=== PATIENT | male | born 1990 | race Caucasian/White ===

== ENCOUNTER 2017-04-22 10:49 | Emergency (ER) | payer BC ==
[2017-04-22] MEDS ORDERED: SULFAMETHOXAZOLE/TRIMETHOPRIM 1 TAB TABLET PO ONE (11:11)
[2017-04-22] MEDS ORDERED: GENTAMICIN SULFATE 3.5 APPL TUBE LEFTEYE ONE (11:15)
--- NOTE | 2017-04-22 11:18 | ERNOTE ---
ENT HPI Date of Service: 04/22/17 Presenting Symptoms: eye pain, other - facial swelling Time Seen by Provider: 04/22/17 10:59 - Immun/Allergies/Home Medications Immunizations: IMMUNIZATION HX Immunizations Up to Date Yes History of Influenza Vaccine No Hx Pneumococcal Vaccination No Allergies/Adverse Reactions: Allergies Allergy/AdvReac Type Severity Reaction Status Date / Time No Known Allergies Allergy Unverified 04/22/17 10:58 Home Medications: HOME MEDICATIONS Gentamicin Sulfate [Gentacidin 0.3% Ophth Ointment] 1 appl LEFTEYE TID #1 bottle 04/22/17 [Last Taken Unknown] Sulfamethoxazole/Trimethoprim [Bactrim Ds] 1 tab PO BID #28 tab 04/22/17 [Last Taken Unknown] - History of Present Illness Narrative: Pt. with L facial swelling started L medial eyebrow two days ago. Pt. had this happen a month ago when he had a blemish on his eye lid and it improved with keflex. Date (Duration): 04/20/17 Severity: Present: moderate ENT Location: Present: eye (L), facial Prearrival Treatment: Absent: over the counter meds, prescription meds, flushing eys Modifying Factors - Improves: Reports: antibiotics - keflex improved previously Modifying Factors - Worsens: Reports: nothing Associated Symptoms - ENT: Reports: denies symptoms Prior Treament: Reports: similar symptoms before Review of Systems - Review of Systems Constitutional: Present: no symptoms reported. Absent: recent illness, fever, chills, weakness, fatigue, malaise EYE: Present: eye pain, other - eye lid swelling. Absent: eye discharge, blurred vision, double vision, vision changes, tearing ENT: Present: no symptoms reported Respiratory: Present: no symptoms reported. Absent: shortness of breath, cough , wheezing Cardiology: Present: no symptoms reported. Absent: chest pain, palpitations, edema Gastrointestinal/Abdominal: Present: no symptoms reported. Absent: nausea, vomiting, diarrhea Genitourinary: Present: no symptoms reported Musculoskeletal: Present: no symptoms reported. Absent: back pain, joint pain Skin: Present: no symptoms reported. Absent: rash, change in hair/nails Neurological: Present: no symptoms reported. Absent: headache, dizziness/light- headedness, numbness, tingling Endocrine: Present: no symptoms reported All Other Systems: All systems neg except as marked - Patient's Past Medical History Patient History - Medical: No pertinent hx Patient History - Cardiac/Respiratory: No pertinent hx Patient History - Cancer: No Hx of Cancer Patient History - Surgical Procedures: No surgical history Patient History - Other: None - Social History Living Situations: home Psych History: No pertinent hx Smoking Status: Never smoker - Immunizations Immunizations Up to Date: Yes Hx Pneumococcal Vaccination: No History of Influenza Vaccine: No Physical Exam - Physical Exam General Appearance: Present: wd/wn, alert, no apparent distress Head Exam: Present: no evidence of injury, swelling - F eyebrow to cheekbone Eye Exam: PERRL: bilateral, EOMI: bilateral, Eyelid inflammation: left Ears, Nose, Throat: Present: normal ENT inspection Neck: Present: normal inspection, nontender. Absent: lymphadenopathy (R), lymphadenopathy (L) Respiratory: Present: no respiratory distress, normal breath sounds, no accessory muscle use, chest nontender, lungs clear Cardiovascular/Chest: Present: regular rate, rhythm, no murmur, normal peripheral pulses Neurological Exam: Present: alert, oriented, normal mood/affect, no motor/ sensory deficits, detail assembler II-XII nml as tested, normal cerebellar test Skin Exam: Present: normal color, warm/dry. Absent: pallor, skin rash ED Progress - Date and Time Seen: Date and Time: 04/22/17 11:35 Pt. had this similarly and it appears uncomplicated and was a short course with no complications a month ago, but may be MRSA due to pt. work environment he is at risk so will start on Bactrim and have him follow up tomorrow if no improvement. - Vital Signs Patient's Vital Signs:: I have reviewed the patient's vital signs. Vital Signs: Vital Signs 04/22/17 10:55 Temperature 37.0 C Pulse Rate 79 Respiratory 16 Rate Blood Pressure 134/95 O2 Sat by Pulse 99 Oximetry - Progress/Reassessment Chief Complaint: Eye Injury/Trauma Progress:: Unchanged Departure Clinical Impression: Facial cellulitis - Departure Disposition: Home self-care Condition: Good Instructions: Cellulitis, Adult, [id number], Form - Excuse from Work, School , or Physical Activity Additional Instructions: Please follow up with primary provider in 1-2 days. Prescriptions: Gentamicin Sulfate [Gentacidin 0.3% Ophth Ointment] 1 appl LEFTEYE TID #1 bottle Sulfamethoxazole/Trimethoprim [Bactrim Ds] 1 tab PO BID #28 tab
[2017-04-22] MEDS ORDERED: GENTAMICIN SULFATE 3.5 APPL TUBE ONE (11:19)
[2017-04-22] MEDS ORDERED: SULFAMETHOXAZOLE/TRIMETHOPRIM 1 TAB TABLET ONE (11:20)
[2017-04-22 11:38] VITALS: BP 126/87
== END 2017-04-22 12:03 | disposition home or self-care (01) ==
LOC: ER 10:49
DX: L03.211 Cellulitis of face (principal)